=== PATIENT | male | born 1995 | race Caucasian/White ===

== ENCOUNTER 2022-08-15 14:55 | Emergency (ER) | payer BC ==
[~2022-08-15] VITALS: Ht 162.6 cm; Wt 72.7 kg
[2022-08-15 15:17] VITALS: BP 150/101
[2022-08-15 16:56] LABS: EOSINOPHILS # (AUTO) 0.1 X10'3 (0-0.9); HEMOGLOBIN 14.9 g/dl (14.0-17.9); LYMPHOCYTES # (AUTO) 2.1 X10'3 (1.1-4.8); MEAN CORPUSCULAR HGB CONC 35.8 g/dL (33.0-36.5); MONOCYTES # (AUTO) 0.4 X10'3 (0-0.9); NEUTROPHILS # (AUTO) 4.2 X10'3 (1.8-7.7)
[2022-08-15 17:06] LABS: BASOPHILS % (AUTO) 0.7 % (0-1)
[2022-08-15 17:37] LABS: EOSINOPHILS % (AUTO) 1.8 % (0-6); HEMATOCRIT 41.5 % (42.0-52.0); LYMPHOCYTES % (AUTO) 30.9 % (21-51); MEAN CORPUSCULAR HEMOGLOBIN 32.6 PG (27.0-31.0); MEAN CORPUSCULAR VOLUME 91.2 FL (78-98); MEAN PLATELET VOLUME 9.4 FL (7.4-10.4); MONOCYTES % (AUTO) 6.3 % (2-12); NEUTROPHILS % (AUTO) 60.3 % (42-75); PLATELET COUNT 277 X10'3 (140-440); RED BLOOD COUNT 4.55 X10'6 (4.70-6.10); RED CELL DISTRIBUTION WIDTH 12.5 % (11.5-14.5)
[2022-08-15 17:40] LABS: ALANINE AMINOTRANSFERASE 48 U/L (12-78); ALBUMIN 4.6 G/DL (3.4-5.0); ALBUMIN/GLOBULIN RATIO 1.4 (1.1-1.5); ALKALINE PHOSPHATASE 61 IU/L (46-116); ANION GAP 6 (8-16); ASPARTATE AMINO TRANSFERASE 20 U/L (10-37); BILIRUBIN,TOTAL 0.7 MG/DL (0.1-1.0); BLOOD UREA NITROGEN 8 MG/DL (7-18); BUN/CREATININE RATIO 8.3 (10.0-20.0); CALCIUM 9.6 MG/DL (8.5-10.1); CHLORIDE 105 MMOL/L (99-107); CREATININE 0.96 MG/DL (0.60-1.10); GLUCOSE 106 MG/DL (70-104); POTASSIUM 3.4 MMOL/L (3.5-5.1); SODIUM 141 MMOL/L (135-145); TOTAL CARBON DIOXIDE 29.6 MMOL/L (24-32); VALPROATE 57 UG/ML (50-100); eGFR > 90 ML/MIN
== END 2022-08-15 18:59 | disposition home or self-care (01) ==
LOC: ER 14:56
DX: Z13.89 Encounter for screening for other disorder (principal); R51.9 Headache, unspecified; F31.9 Bipolar disorder, unspecified
CPT/HCPCS: 36415; 80053; 80164; 85025; 99283

== ENCOUNTER 2022-11-17 13:39 | Emergency (ER) | payer BC ==
[~2022-11-17] VITALS: Ht 167.6 cm; Wt 77.7 kg
[2022-11-17 14:51] LABS: BASOPHILS # (AUTO) 0.1 X10'3 (0-0.2); BASOPHILS % (AUTO) 0.5 % (0-1); EOSINOPHILS # (AUTO) 0.1 X10'3 (0-0.9); EOSINOPHILS % (AUTO) 0.4 % (0-6); HEMATOCRIT 45.8 % (42.0-52.0); LYMPHOCYTES # (AUTO) 3.3 X10'3 (1.1-4.8); LYMPHOCYTES % (AUTO) 28.7 % (21-51); MEAN CORPUSCULAR HEMOGLOBIN 31.8 PG (27.0-31.0); MEAN CORPUSCULAR HGB CONC 34.9 g/dL (33.0-36.5); MEAN CORPUSCULAR VOLUME 91.2 FL (78-98); MEAN PLATELET VOLUME 9.3 FL (7.4-10.4); MONOCYTES # (AUTO) 0.6 X10'3 (0-0.9); MONOCYTES % (AUTO) 5.1 % (2-12); NEUTROPHILS # (AUTO) 7.5 X10'3 (1.8-7.7); NEUTROPHILS % (AUTO) 65.3 % (42-75); PLATELET COUNT 340 X10'3 (140-440); RED BLOOD COUNT 5.02 X10'6 (4.70-6.10); RED CELL DISTRIBUTION WIDTH 12.8 % (11.5-14.5); WHITE BLOOD COUNT 11.5 X10'3 (4.5-11.0)
[2022-11-17 14:59] LABS: ALANINE AMINOTRANSFERASE 39 U/L (12-78); ALBUMIN 5.1 G/DL (3.4-5.0); ALBUMIN/GLOBULIN RATIO 1.5 (1.1-1.5); ALKALINE PHOSPHATASE 70 IU/L (46-116); ANION GAP 10 (8-16); ASPARTATE AMINO TRANSFERASE 16 U/L (10-37); BILIRUBIN,TOTAL 0.6 MG/DL (0.1-1.0); BLOOD UREA NITROGEN 10 MG/DL (7-18); BUN/CREATININE RATIO 9.3 (10.0-20.0); CALCIUM 10.1 MG/DL (8.5-10.1); CHLORIDE 101 MMOL/L (99-107); CREATININE 1.07 MG/DL (0.60-1.10); ETHANOL < 0.010 GM/DL (0.0-0.010); GLUCOSE 99 MG/DL (70-104); POTASSIUM 3.3 MMOL/L (3.5-5.1); SODIUM 138 MMOL/L (135-145); TOTAL CARBON DIOXIDE 27.4 MMOL/L (24-32); TOTAL PROTEIN 8.5 G/DL (6.4-8.2); eGFR 82 ML/MIN
--- NOTE | 2022-11-17 15:30 | NUR ---
pt arrived to ER overflow at 0320 via ER overflow staff. Pt seemed pleasant and cooperative throughout new admit assessments and expressed what caused thoughts of suicide. pt admits hes had these thoughts before and has been diagnosed with Bipolar 1.
[2022-11-17] MEDS ORDERED: POTASSIUM BICARB 20meq eff tab 20 MEQ TABLET.EFF PO STA (15:41)
[2022-11-17 15:54] LABS: URINE AMPHETAMINE SCREEN NEGATIVE (Neg); URINE BARBITUATE SCREEN NEGATIVE (Neg); URINE BENZODIAZEPINES SCREEN NEGATIVE (Neg); URINE CANNABINOID SCREEN POSITIVE (Neg); URINE COCAINE SCREEN NEGATIVE (Neg); URINE METHADONE SCREEN NEGATIVE (Neg); URINE OPIATE SCREEN NEGATIVE (Neg); URINE PHENCYCLIDINE SCREEN NEGATIVE (Neg)
[2022-11-17] MEDS ORDERED: LIT300C PO (16:18)
[2022-11-17] MEDS ORDERED: EMTR1TAB18 PO (16:18)
[2022-11-17] MEDS ORDERED: DIVA500T4 PO (16:18)
[2022-11-17] MEDS ORDERED: QUET200T PO (16:18)
--- NOTE | 2022-11-17 16:20 | NUR ---
FAXED TO [facility] @[id number]
[2022-11-17] MEDS ORDERED: LORazepam 1 MG tablet PO ONE (16:30)
--- NOTE | 2022-11-17 16:38 | NUR ---
Avinash dorsey in EDM - 11/17/22 at 1649 by [email or web address] pt arrived to ER overflow at 0320 via ER overflow staff. Pt seemed pleasant and cooperative throughout new admit assessments and expressed what caused thoughts of suicide. pt admits hes had these thoughts before and has been diagnosed with Bipolar 1.
--- NOTE | 2022-11-17 16:55 | NUR ---
The patient has been accepted at [facility]
--- NOTE | 2022-11-17 17:20 | NUR ---
pt observed sitting on bed and talking with SW. pt's mother is here to visit.
--- NOTE | 2022-11-17 17:37 | NUR ---
pt has decided he feels safe enough to leave as well as drive his POV. pt currently waiting for discharge paperwork in order to be discharged.
--- NOTE | 2022-11-17 17:53 | NUR ---
pt departed at 1754 with all of belongings.
[2022-11-17 17:55] VITALS: BP 140/94
[2022-11-17] MEDS ORDERED: divalproex sod 250mg ER (24-hour) tablet PO SCH (20:00)
[2022-11-17] MEDS ORDERED: lithium carbonate 300mg SR tablet (LithoBID) PO SCH (21:00)
[2022-11-17] MEDS ORDERED: quetiapine 100mg tablet PO SCH (21:00)
[2022-11-18] MEDS ORDERED: Emtricitabine/Tenofov Alafenam (Descovy 200-25 mg Tablet) PO SCH (08:00)
== END 2022-11-17 18:03 | disposition home or self-care (01) ==
LOC: ER 13:40
DX: R45.851 Suicidal ideations (principal); Z20.822 Contact with and (suspected) exposure to COVID-19; F31.9 Bipolar disorder, unspecified
CPT/HCPCS: 36415; 80053; 80164; 80305; 80320; 85025; 87811; 99285